=== PATIENT | male | born 1965 | race Caucasian/White ===

== ENCOUNTER 2025-03-15 07:05 | Outpatient (CLI) | payer MEDICAID ==
[~2025-03-15] VITALS: Ht 167.6 cm; Wt 54.4 kg
[2025-03-15] MEDS: albuterol 2.5 MG/3 ML nebule NEB ONE (07:51)
[2025-03-15 07:53] VITALS: PULSE 72; RESP 16; O2SAT 98
[2025-03-15 08:08] VITALS: PULSE 66; RESP 18
--- NOTE | 2025-03-15 14:19 | PROCEDURE NOTE - Respiratory ---
Procedure Note-Respiratory Providers to Copies To 1: [facility] Procedure Name: This is a spirometry study dated March 15, 2025. The spirometry study was performed both before and after inhaled bronchodilator. Spirometry measurements: There is slight reduction in the forced vital capacity. There is very severe reduction in the FEV1 measurement. The FEV1 ratio is also severely reduced. All of the measured flow rates are very poor. After inhaled bronchodilator was given, there is very little change in the flow volume curve. Conclusion: This study shows severe abnormality. There is evidence for severe obstructive ventilatory defect which shows very little response to inhaled bronchodilator. These findings are consistent with the patient's diagnosis of advanced smoking-related COPD. It is strongly recommended that the patient completely abstain from cigarette smoking. Continued use of bronchodilator therapy is recommended. Close pulmonary follow-up is recommended. We have no previous studies for comparison. ABDULLAHI MCKENZIE MD Mar 15, 2025 14:19
== END 2025-03-15 23:59 | disposition home or self-care (01) ==
LOC: RT 07:05
PROVIDERS: ATTEND Nurse Practitioner Family
DX: R06.02 Shortness of breath (principal); R06.2 Wheezing; J98.8 Other specified respiratory disorders
CPT/HCPCS: 94060; 94760